=== PATIENT | male | born 1975 | race Caucasian/White ===

== ENCOUNTER 2022-01-07 11:13 | Day surgery (SDC) | payer BC ==
[2022-01-02 14:11] LABS: BASOPHILS # (AUTO) 0.1 X10'3 (0-0.2); EOSINOPHILS # (AUTO) 0.1 X10'3 (0-0.9); EOSINOPHILS % (AUTO) 0.9 % (0-6); LYMPHOCYTES # (AUTO) 1.5 X10'3 (1.1-4.8); LYMPHOCYTES % (AUTO) 18.4 % (21-51); MEAN CORPUSCULAR HEMOGLOBIN 32.5 PG (27.0-31.0); MEAN CORPUSCULAR HGB CONC 35.5 g/dL (33.0-36.5); MEAN CORPUSCULAR VOLUME 91.5 FL (78-98); MEAN PLATELET VOLUME 7.1 FL (7.4-10.4); MONOCYTES # (AUTO) 0.4 X10'3 (0-0.9); NEUTROPHILS % (AUTO) 74.7 % (42-75); PRE OP HEMATOCRIT 42.3 % (42.0-52.0); PRE OP PLATELET COUNT 246 X10'3 (140-440); RED BLOOD COUNT 4.62 X10'6 (4.70-6.10); RED CELL DISTRIBUTION WIDTH 13.1 % (11.5-14.5)
[2022-01-02 14:18] LABS: ALBUMIN 3.8 G/DL (3.4-5.0); ALBUMIN/GLOBULIN RATIO 1.2 (1.1-1.5); ALKALINE PHOSPHATASE 80 IU/L (46-116); BLOOD UREA NITROGEN 15 MG/DL (7-18); BUN/CREATININE RATIO 13.6 (5.4-32.0); CALCIUM 8.4 MG/DL (8.5-10.1); CHLORIDE 101 MMOL/L (99-107); PRE OP ALT 41 U/L (30-65); PRE OP ANION GAP 6 (8-16); PRE OP AST 22 U/L (10-37); PRE OP BILIRUB, TOTAL 0.5 MG/DL (0.0-1.0); PRE OP SODIUM 136 MMOL/L (135-145); TOTAL CARBON DIOXIDE 29.2 MMOL/L (24-32); TOTAL PROTEIN 6.9 G/DL (6.4-8.2); eGFR 72 ML/MIN
[2022-01-02 14:20] LABS: PRE OP GLUCOSE 273 MG/DL (70-104)
[2022-01-07] VITALS (16 sets, daily range): BP systolic 136–175; BP diastolic 88–114
[~2022-01-07] VITALS: Ht 170.2 cm; Wt 110.1 kg
[~2022-01-07 11:13] MED LIST: AMLO5TAB16 PO; DESM0.2T31 PO; HYDR-3972 PO; LOSA50TA64 PO; OXYB15TA19 PO; PANT40TA54 PO; SUMA25TA35 PO; ceFAZolin inj. 2,000 MG in dextrose 5%-water 100 ML IV ONE; famotidine 20mg tablet PO ONE; ringers solution, lacted 1,000 ML IV SCH
[2022-01-07] MEDS ORDERED: insulin regular, human U-100 3ml vial - multi-dose IV ONE (12:45)
[2022-01-07] MEDS ORDERED: ringers solution, lacted 1,000 ML IV SCH (12:50)
[2022-01-07] MEDS ORDERED: meperidine/PF 25mg/ml syringe IV PRN ×3 (12:50)
[2022-01-07] MEDS ORDERED: ondansetron/PF 4mg/2ml inj IV PRN (12:50)
[2022-01-07] MEDS ORDERED: proCHLORperazine 10 MG/2 ml inj IV PRN (12:50)
[2022-01-07] MEDS ORDERED: fentaNYL/PF 50MCG/1 ML 2ML syringe ONE (13:05)
[2022-01-07] MEDS ORDERED: LIDOcaine 2% (20mg/ml) 5ml vial ONE (13:06)
[2022-01-07] MEDS ORDERED: propofol inj 20 ML IV ONE (13:06)
[2022-01-07] MEDS ORDERED: midazolam 1 mg/ML 2ml injection ONE (13:06)
[2022-01-07] MEDS ORDERED: glycopyrrolate 0.2mg/ml inj ONE (13:09)
[2022-01-07] MEDS ORDERED: BUPIVACAINE liposomal/PF 13.3 MG/ML vial IM ONE (13:43)
[2022-01-07] MEDS ORDERED: BUPIVAcaine/PF 2.5mg/ml (0.25%) 10ml vial ONE ×3 (13:43→13:45)
[2022-01-07] MEDS ORDERED: LIDOcaine 1% 30ml preserv. free vial ONE (13:43)
[2022-01-07] MEDS ORDERED: rocuronium 10mg/ml inj IV ONE (14:21)
[2022-01-07] MEDS ORDERED: oxyCODONE/APAP 5-325mg tablet PO PRN (15:05)
[2022-01-07] MEDS ORDERED: ketorolac trometh. 30mg/ml inj. ONE (15:05)
--- NOTE | 2022-01-07 15:13 | NUR ---
Received from OR via [facility], accompanied by Anesthesiologist and report given by GALI Anesthesiologist. PATIENT WAKING UP, DENIES PAIN, V/S WNL, PIV 20G RH, BANDAID LAPS SITES CLOSED AND ISLAND DRESSING C/D/I TO ABDOMEN. Addendum: 01/07/22 at 1531 by Gerry Ayala RN Amended: Links added.
[2022-01-07] MEDS: labetalol 20mg/4ml (5mg/ml) syringe IV PRN ×3 (15:32→15:55)
--- NOTE | 2022-01-07 16:43 | NUR ---
ALL DISCHARGE CRITERIA HAS BEEN MET. VSS, PAIN AT A TOLERABLE LEVEL, ABLE TO SAFELY AMBULATE AND TRANSFER SELF. IV TAKEN OUT WITHOUT ANY COMPLICATIONS. ALL DISCHARGE INSTRUCTIONS COVERED WITH PATIENT AND ALL QUESTIONS ANSWERED. PATIENT TAKEN OUT VIA WHEELCHAIR WITH ALL BELONGINGS TO PERSONAL VEHICLE WHERE FAMILY DROVE PATIENT HOME. Addendum: 01/07/22 at 1655 by Gerry Ayala RN Amended: Links added.
== END 2022-01-07 16:43 | disposition home or self-care (01) ==
LOC: PAS 11:13
PROVIDERS: ATTEND Surgery
DX: K42.9 Umbilical hernia without obstruction or gangrene (principal); G47.30 Sleep apnea, unspecified; I10 Essential (primary) hypertension; E66.9 Obesity, unspecified; F41.9 Anxiety disorder, unspecified; E11.9 Type 2 diabetes mellitus without complications; K21.9 Gastro-esophageal reflux disease without esophagitis; G43.909 Migraine, unspecified, not intractable, without status migrainosus; Z79.899 Other long term (current) drug therapy; Z98.890 Other specified postprocedural states; Z88.6 Allergy status to analgesic agent; Z68.38 Body mass index [BMI] 38.0-38.9, adult
CPT/HCPCS: 36415; 49652; 64488; 80053; 82948; 85025; 93005; C1781; C9290; J0690; J1815; J1885; J2175; J2250; J2704; J3010; J3490; J7030; J7060; J7120; S2900; Z7506; Z7508; Z7512; A4215; A4618

== ENCOUNTER 2023-01-04 16:44 | Emergency (ER) | payer BC ==
[~2023-01-04] VITALS: Ht 172.7 cm; Wt 109.1 kg
[~2023-01-04 16:44] MED LIST changes: -ceFAZolin inj. 2,000 MG in dextrose 5%-water 100 ML IV ONE; -famotidine 20mg tablet PO ONE; -ringers solution, lacted 1,000 ML IV SCH
--- NOTE | 2023-01-04 17:34 | NUR ---
Pt POV c/o L wrist pain, no definitive injury. AOx4. VSS-HTN treated w/losartan.
[2023-01-04 19:17] VITALS: BP 160/92; PULSE 75; RESP 18; TEMP 97.6; O2SAT 99
== END 2023-01-04 19:19 | disposition home or self-care (01) ==
LOC: ER 16:45
DX: M25.532 Pain in left wrist (principal); Z79.899 Other long term (current) drug therapy
CPT/HCPCS: 73110; 99283

== ENCOUNTER 2023-08-10 08:53 | Inpatient (IN) | payer BC ==
[~2023-08-10] VITALS: Ht 170.2 cm; Wt 112.3 kg
[2023-08-10 08:55] VITALS: TEMP 98.1
[2023-08-10] MEDS ORDERED: GABA600T13 PO (09:02)
[2023-08-10] MEDS ORDERED: GABA300T28 PO (09:02)
[2023-08-10] MEDS ORDERED: METF-900 PO ×2 (09:03)
[2023-08-10] MEDS ORDERED: LOSA100T58 PO (09:04)
[2023-08-10] MEDS ORDERED: PANT40TA54 PO (09:04)
[2023-08-10] MEDS ORDERED: EMPA10TA PO (09:04)
[2023-08-10] MEDS ORDERED: OMEP40CA21 PO (09:04)
[2023-08-10 09:39] LABS: BASOPHILS # (AUTO) 0.1 X10'3 (0-0.2); BASOPHILS % (AUTO) 0.7 % (0-1); EOSINOPHILS # (AUTO) 0.1 X10'3 (0-0.9); EOSINOPHILS % (AUTO) 1.1 % (0-6); HEMATOCRIT 45.3 % (42.0-52.0); HEMOGLOBIN 15.6 g/dl (14.0-17.9); LYMPHOCYTES # (AUTO) 1.4 X10'3 (1.1-4.8); LYMPHOCYTES % (AUTO) 17.8 % (21-51); MEAN CORPUSCULAR HEMOGLOBIN 32.5 PG (27.0-31.0); MEAN CORPUSCULAR HGB CONC 34.5 g/dL (33.0-36.5); MEAN CORPUSCULAR VOLUME 94.2 FL (78-98); MEAN PLATELET VOLUME 7.3 FL (7.4-10.4); MONOCYTES # (AUTO) 0.5 X10'3 (0-0.9); NEUTROPHILS # (AUTO) 5.7 X10'3 (1.8-7.7); NEUTROPHILS % (AUTO) 74.4 % (42-75); PLATELET COUNT 258 X10'3 (140-440); RED BLOOD COUNT 4.81 X10'6 (4.70-6.10); RED CELL DISTRIBUTION WIDTH 13.4 % (11.5-14.5); WHITE BLOOD COUNT 7.6 X10'3 (4.5-11.0)
[2023-08-10 10:43] LABS: ALBUMIN 3.8 G/DL (3.4-5.0); ANION GAP 13 (8-16); BLOOD UREA NITROGEN 20 MG/DL (7-18); BUN/CREATININE RATIO 18.5 (10.0-20.0); CALCIUM 8.7 MG/DL (8.5-10.1); CHLORIDE 100 MMOL/L (99-107); CREATININE 1.08 MG/DL (0.60-1.10); PRO BRAIN NATRIURETIC PEPTIDE < 30 PG/ML (0-125); SODIUM 135 MMOL/L (135-145); eCRCL 77 ML/MIN; eGFR 73 ML/MIN
[2023-08-10] MEDS: hyDRALAzine 10mg tablet PO ONE (11:12)
[2023-08-10 11:15] LABS: ALANINE AMINOTRANSFERASE 42 U/L (12-78); ALBUMIN/GLOBULIN RATIO 1.1 (1.1-1.5); ALKALINE PHOSPHATASE 64 IU/L (46-116); ASPARTATE AMINO TRANSFERASE 19 U/L (10-37); BILIRUBIN,TOTAL 0.4 MG/DL (0.1-1.0); GLUCOSE 163 MG/DL (70-104); POTASSIUM 4.1 MMOL/L (3.5-5.1); TOTAL PROTEIN 7.3 G/DL (6.4-8.2)
[2023-08-10] MEDS ORDERED: magnesium hydroxide 30ml (MOM) UD suspension PO PRN (11:50)
[2023-08-10] MEDS ORDERED: magnesium 4gm in 100ml NS 100 ML IV PRN (11:50)
[2023-08-10] MEDS ORDERED: potassium Cl 20 mEq SR tablet PO PRN ×2 (11:50)
[2023-08-10] MEDS ORDERED: potassium Cl 40MEQ/1/2NS 520ml 520 ML IV PRN (11:50)
[2023-08-10] MEDS ORDERED: magnesium Cl slow-release 64mg tablet PO PRN (11:50)
[2023-08-10] MEDS ORDERED: acetaminophen 325mg tablet PO PRN (11:50)
[2023-08-10] MEDS ORDERED: ondansetron/PF 4mg/2ml inj IV PRN (11:50)
[2023-08-10] MEDS ORDERED: mag hydrox/Alum hydrox/simeth 30ml oral suspension PO PRN (11:50)
[2023-08-10] MEDS ORDERED: hydrALAZINE 20mg/ml inj. IV PRN (12:05)
[2023-08-10] MEDS: PERFLUTREN PROTEIN-A MICROSPHR (Optison) 0.22 MG/ML 3ML VIAL IV ONE (12:18)
[2023-08-10] MEDS ORDERED: DEXTROSE 15 GM of carb/4 tabs (each vial/BOTTLE has 4 tablets) PO PRN ×2 (12:45)
[2023-08-10] MEDS ORDERED: glucagon, human recombinant 1mg kit SUBCUT PRN (12:45)
[2023-08-10] MEDS ORDERED: dextrose 50%-water 50ml dispensing syringe IV PRN ×2 (12:45)
[2023-08-10] MEDS: normal saline 1000ml 1,000 ML IV SCH (13:38)
[2023-08-10 13:53] LABS: CHOL/HDL RATIO 6.9 (0.00-4.99); CHOLESTEROL 166 MG/DL (0-200); HDL CHOLESTEROL 24 MG/DL (35-60); LDL CHOLESTEROL 54 MG/DL (50-100); THYROID STIMULATING HORMONE 1.81 ulU/ml (0.34-4.50); TRIGLYCERIDES 926 MG/DL (20-135)
[2023-08-10 14:21] LABS: HEMOGLOBIN A1C 7.4 % (4.5-6.2)
[2023-08-10 16:23] LABS: URINE AMPHETAMINE SCREEN NEGATIVE (Neg); URINE BARBITUATE SCREEN NEGATIVE (Neg); URINE BENZODIAZEPINES SCREEN NEGATIVE (Neg); URINE CANNABINOID SCREEN POSITIVE (Neg); URINE COCAINE SCREEN NEGATIVE (Neg); URINE METHADONE SCREEN NEGATIVE (Neg); URINE PHENCYCLIDINE SCREEN NEGATIVE (Neg)
[2023-08-10] MEDS: INSULIN LISPRO 100 UNIT/ML INSULN.PEN MULTI-DOSE SQ SCH (17:00)
[2023-08-10] MEDS: atorvastatin 20mg tablet PO SCH (18:13)
[2023-08-10 18:14] VITALS: BP_DIAS 97; RESP 16; O2SAT 95
[2023-08-10 19:04] VITALS: BP_SYST 161; PULSE 73
[2023-08-10] MEDS: amLODIPine 5mg tablet PO SCH (19:04)
[2023-08-10] MEDS: gabapentin 300mg capsule PO SCH (19:04)
[2023-08-10] MEDS: K and/or MAG REPLACEMENT MC SCH (19:12)
[2023-08-10] MEDS: docusate sod 100mg capsule PO SCH (19:12)
[2023-08-10] MEDS ORDERED: pantoprazole 40mg Tablet.DR PO SCH (21:00)
[2023-08-10] MEDS ORDERED: DESMOPRESSIN ACETATE 0.1 MG TABLET PO SCH (21:00)
[2023-08-11] MEDS ORDERED: losartan 50mg tablet PO SCH (08:00)
[2023-08-11] MEDS ORDERED: enoxaparin 40mg/0.4ml syringe SUBCUT SCH (08:00)
[2023-08-11] MEDS ORDERED: EMPAGLIFLOZIN 10 MG TABLET PO SCH (08:00)
[2023-08-11] MEDS ORDERED: fenofibrate 48mg tablet PO SCH (08:30)
== END 2023-08-10 21:16 | disposition left against medical advice (07) | DRG 305 ==
LOC: ER 08:54 → ED HOLD 11:50 → EDBEDREQ 19:51
PROVIDERS: ADMIT Family Medicine; ATTEND Family Medicine
DX: I16.1 Hypertensive emergency (principal); N17.9 Acute kidney failure, unspecified; E23.2 Diabetes insipidus; F17.290 Nicotine dependence, other tobacco product, uncomplicated; G47.33 Obstructive sleep apnea (adult) (pediatric); I10 Essential (primary) hypertension; E11.9 Type 2 diabetes mellitus without complications; E78.1 Pure hyperglyceridemia; R51.9 Headache, unspecified; F10.90 Alcohol use, unspecified, uncomplicated; Y90.9 Presence of alcohol in blood, level not specified; Z53.29 Procedure and treatment not carried out because of patient's decision for other reasons; F12.10 Cannabis abuse, uncomplicated; Z79.899 Other long term (current) drug therapy
CPT/HCPCS: 36415; 71045; 80053; 80061; 80305; 82570; 82948; 83036; 83690; 83880; 83935; 84133; 84300; 84443; 84484; 85025; 93005; 93306; G0378; J1815; J7030